=== PATIENT | male | born 1965 | race American Indian/Alaskan Native ===

== ENCOUNTER 2016-04-03 11:39 | Outpatient (CLI) | payer OTHER ==
--- NOTE | 2016-04-04 14:01 | Cat Scan Report ---
CT OF THE RIGHT FOOT WITHOUT CONTRAST: HISTORY: Babcock's neuroma. FINDINGS: Axial images with sagittal and coronal reformatted images were obtained. No definite evidence of a mass between the metatarsals is identified on this study. However, the imaging modality of choice is MRI with and without contrast. The bony structures appear normal. There are no fractures or other acute findings. IMPRESSION: No significant findings. MRI may be useful in further evaluation, if clinically appropriate.
== END 2016-04-03 11:40 | disposition home or self-care (01) ==
LOC: CT 11:39
PROVIDERS: ATTEND General Practice
DX: T87.33 Neuroma of amputation stump, right lower extremity (principal)